=== PATIENT | female | born 1990 | race Hispanic/Latino ===

== ENCOUNTER 2016-07-19 22:56 | Emergency (ER) | payer OTHER ==
[~2016-07-19] VITALS: Ht 172.7 cm; Wt 101.6 kg
[~2016-07-19 22:56] MED LIST: IBUPROFEN800 MG PO; PRENATAL1 TA2 PO; TRANDATE-NORMO100 MG PO
--- NOTE | 2016-07-19 23:22 | ED THROAT/DENTAL COMPLAINT ---
History of Present Illness General Chief Complaint: Sore Throat, Dental Pain Stated Complaint: SORE THROAT Source: patient, BOYFRIEND Exam Limitations: no limitations Vital Signs & Intake/Output Vital Signs & Intake/Output Vital Signs Date Time Temp Pulse Resp B/P B/P Pulse O2 O2 Flow FiO2 Mean Ox Delivery Rate 07/20 0004 98.7 91 18 112/72 98 Room Air 07/19 2302 98.7 92 18 112/71 98 Room Air ED Intake and Output 07/20 0000 07/19 1200 Intake Total Output Total Balance Patient 224 lb Weight Weight Reported by Patient Measurement Method Allergies Coded Allergies: NO KNOWN ALLERGIES (01/06/14) Reconcile Medications Ibuprofen 800 MG TABLET 800 MG PO Q6P PRN PAIN SCALE 4-6 Labetalol (Trandate-Normodyne 100MG Tab) 100 MG TABLET 100 MG PO BID HYPERTENSION PNV95/FERROUS FUMARATE/FA ( Formula Tablet) 28 MG IRON-800 MCG TABLET 2 TAB PO DAILY supplement (Reported) Triage Note: PT 7MONTHS , TO TRIAGE FROM [facility], PT CLEARED BY OBGYN TO STAY IN ER, FHR 140'S. PT C/O SORE THROAT SINCE THIS MORNING. STREP SWAB OBTAINED IN TRIAGE AND SENT TO LAB. VSS. Triage Nurses Notes Reviewed? yes : Yes Patient currently breastfeeds: No HPI: Roxanne is a 25 year old female presents complaining of sore throat, chills, congestion onset today. Symptoms are currently moderate to severe. Patient's boyfriend started with similar symptoms 4 days ago. Patient is approximately 7 months , felt the baby moving less today. Was evaluated by the child center prior to coming to the ED. Patient is tolerating oral intake. Mild cough. Denies dyspnea, chest pain, vaginal bleeding, abdominal pain. (ALYX HAGER) Past History Travel History Traveled to [place] past 21 day No Medical History Any Pertinent Medical History? see below for history TRACK RIDER/Reproductive: currently 7 months Tetanus Vaccine: 03/27/10 Surgical History Surgical History: non-contributory Psychosocial History What is your primary language Bulgarian Tobacco Use: Never used Family History Hx Contributory? No (ALYX HAGER) Review of Systems Review of Systems Constitutional: Reports: chills. Denies: fever. EENTM: Reports: see HPI. Respiratory: Reports: cough. Denies: short of breath. Cardiovascular: Denies: chest pain. GI: Denies: abdominal pain, vomiting. Musculoskeletal: Reports: no symptoms. Skin: Reports: no symptoms. Neurological/Psychological: Reports: headache. Hematologic/Endocrine: Denies: bruising, bleeding. Immunologic/Allergic: Denies: splenectomy. (ALYX HAGER) Physical Exam Physical Exam General Appearance: well developed/nourished, alert, awake Head: atraumatic, normal appearance Eyes: Bilateral: normal appearance, PERRL, EOMI. Ears: Bilateral: canal normal, Tympanic normal. Nose: normal inspection Mouth/Throat: normal mouth inspection, pharynx normal Neck: normal inspection, supple, no anterior cervical lymphadenopathy Cardiovascular/Respiratory: normal breath sounds, regular rate/rhythm, no respiratory distress Back: normal inspection, normal range of motion Neurologic/Psych: no motor/sensory deficits, awake, alert, oriented x 3, normal gait, normal mood/affect Skin: intact, normal color, warm/dry Core Measures ACS in differential dx? No Severe Sepsis Present: No Septic Shock Present: No (ALYX HAGER) Progress Differential Diagnosis: epiglottitis, Ludwigs angina, strep pharyngitis, viral URI Plan of Care: Orders Procedure Date/time Status THROAT CULTURE W/QUICK STREP 07/19 2309 Active Patient was cleared by the childbirth center prior to arrival. Patient afebrile, nontoxic-appearing. Rapid strep test negative. Appears stable for discharge with symptomatic treatment. Has appointment with her wave solder offbearer on July 21. Discussed with Dr. Spears. (ALYX HAGER) Departure Departure Time of Disposition: 2355 Disposition: HOME OR SELF CARE Condition: Stable Clinical Impression Primary Impression: Viral upper respiratory infection Referrals: REE KARIMI,ANGELITA De Los Santos (PCP/Family) Additional Instructions: Take Tylenol as directed for pain. Saline nasal spray as directed for congestion. Follow up with Dr. Mahmood on as scheduled. Return to the ER if difficulty breathing, swallowing is becoming more difficult or worsening of symptoms. Departure Forms: Customer Survey General Discharge Information (ALYX HAGER) PA/MANUFACTURING OPERATIONS MANAGER Co-Sign Statement Statement: ED Attending supervision documentation- [] I saw and evaluated the patient. I have also reviewed all the pertinent lab results and diagnostic results. I agree with the findings and the plan of care as documented in the PA's/MANUFACTURING OPERATIONS MANAGER's documentation. [X] I have reviewed the ED Record and agree with the PA's/MANUFACTURING OPERATIONS MANAGER's documentation. [] Additions or exceptions (if any) to the PAs/MANUFACTURING OPERATIONS MANAGER's note and plan are summarized below: [] (MARIANO KARIMI,JACKELYN Suh)
[2016-07-20 00:04] VITALS: BP 112/72
== END 2016-07-20 00:05 ==
LOC: ERH 22:56
DX: J06.9 Acute upper respiratory infection, unspecified (principal); O47.02 False labor before 37 completed weeks of gestation, second trimester; Z3A.28 28 weeks gestation of pregnancy
CPT/HCPCS: 59025

== ENCOUNTER 2016-09-12 20:22 | Observation (INO) | payer OTHER ==
[2016-09-12 21:04] LABS: ABSOLUTE BASOPHIL COUNT 0 /CUMM (0.0-0.2); ABSOLUTE EOSINOPHIL COUNT 0 /CUMM (0.0-0.7); ABSOLUTE GRANULOCYTE CT 5.5 /CUMM (1.4-6.5); ABSOLUTE LYMPH COUNT 1.7 /CUMM (1.2-3.4); ABSOLUTE MONOCYTE COUNT 0.5 /CUMM (0.10-0.60); BASOPHIL % 0.3 % (0.0-2.0); EOSINOPHIL % 0.3 % (0-5); GRANULOCYTE % 71.3 % (42.2-75.2); HEMATOCRIT 29.9 % (37-47); MEAN CORPUSCULAR VOLUME 75.9 FL (81.0-99.0); MEAN PLATELET VOLUME 9.3 FL (7.4-10.4); PLATELET COUNT 281 /CUMM (130-400); RBC DISTRIBUTION WIDTH 15.4 % (11.5-14.5); RED BLOOD CELL CT 3.95 /CUMM (4.20-5.40); WHITE BLOOD CELL COUNT 7.7 /CUMM (4.8-10.8)
== END 2016-09-13 08:20 ==
LOC: CBCO 20:22 → GNO 22:50
PROVIDERS: ADMIT Obstetrics & Gynecology
DX: O13.3 Gestational [pregnancy-induced] hypertension without significant proteinuria, third trimester (principal); Z3A.36 36 weeks gestation of pregnancy; R51 Headache
CPT/HCPCS: 81001; 82570; G0378; G0463

== ENCOUNTER 2016-09-23 02:52 | Inpatient (IN) | payer OTHER ==
[~2016-09-23] VITALS: Ht 172.7 cm; Wt 109.3 kg
[2016-09-23 04:32] LABS: ABSOLUTE BASOPHIL COUNT 0 /CUMM (0.0-0.2); ABSOLUTE EOSINOPHIL COUNT 0.1 /CUMM (0.0-0.7); ABSOLUTE GRANULOCYTE CT 6.5 /CUMM (1.4-6.5); ABSOLUTE LYMPH COUNT 1.9 /CUMM (1.2-3.4); ABSOLUTE MONOCYTE COUNT 0.4 /CUMM (0.10-0.60); BASOPHIL % 0.2 % (0.0-2.0); EOSINOPHIL % 0.6 % (0-5); GRANULOCYTE % 72.9 % (42.2-75.2); HEMATOCRIT 30.6 % (37-47); MEAN CORPUSCULAR HGB 24.8 PG (27.0-31.0); MEAN CORPUSCULAR HGB CONC 32.5 G/DL (33.0-37.0); MEAN CORPUSCULAR VOLUME 76.2 FL (81.0-99.0); MEAN PLATELET VOLUME 9.3 FL (7.4-10.4); PLATELET COUNT 257 /CUMM (130-400); RBC DISTRIBUTION WIDTH 15.9 % (11.5-14.5); RED BLOOD CELL CT 4.02 /CUMM (4.20-5.40)
--- NOTE | 2016-09-23 09:29 | Labor & Delivery Summary ---
Delivery Summary Vaginal Delivery: Vaginal: vertex Episiotomy/Lacerations: Episiotomy/Lacerations: none Placenta: Placenta: spontanteous, normal, 3 vessel Anesthesia: block Additional Comments: of viable female infant 3 vessel cord over intact perineum suctioned with bulb on perineal cord doubly clamped and cut after lack of pulsation handed to mother for skin to skin cord cut placenta by continuous cord traction intact over intact perineum snare blood loss 500
--- NOTE | 2016-09-24 07:22 | PN- Post Delivery/GYN ---
Subjective Subjective: NO COMPLAINTS Objective Last 24 Hrs of Vital Signs/I&O PER CHART Assessment/Plan Assessment/Plan ASSESS S/P PLAN C D/C IN AM
[2016-09-24 09:23] LABS: ABSOLUTE BASOPHIL COUNT 0 /CUMM (0.0-0.2); ABSOLUTE EOSINOPHIL COUNT 0 /CUMM (0.0-0.7); ABSOLUTE GRANULOCYTE CT 8.6 /CUMM (1.4-6.5); ABSOLUTE LYMPH COUNT 2.2 /CUMM (1.2-3.4); ABSOLUTE MONOCYTE COUNT 0.5 /CUMM (0.10-0.60); BASOPHIL % 0.3 % (0.0-2.0); EOSINOPHIL % 0.4 % (0-5); GRANULOCYTE % 75.5 % (42.2-75.2); HEMATOCRIT 29.3 % (37-47); MEAN CORPUSCULAR HGB 25.4 PG (27.0-31.0); MEAN CORPUSCULAR HGB CONC 33.1 G/DL (33.0-37.0); MEAN CORPUSCULAR VOLUME 76.7 FL (81.0-99.0); PLATELET COUNT 280 /CUMM (130-400); RBC DISTRIBUTION WIDTH 16.1 % (11.5-14.5); RED BLOOD CELL CT 3.82 /CUMM (4.20-5.40); WHITE BLOOD CELL COUNT 11.4 /CUMM (4.8-10.8)
[2016-09-25] MEDS ORDERED: IBUPROFEN800 M1 PO (10:20)
--- NOTE | 2016-09-25 10:41 | PN- Post Delivery/GYN ---
Subjective Subjective: NO C/O Review of Systems: NEG Objective Last 24 Hrs of Vital Signs/I&O VSS Physical Exam: FF EXT NT Assessment/Plan Assessment/Plan S/P PPD2 STABLE DISCHARGE Problem List: 1.
== END 2016-09-25 12:45 | DRG 775 ==
LOC: CBCO 02:52 → GNO 03:31
PROVIDERS: Specialist; ADMIT Obstetrics & Gynecology
PROC: 10E0XZZ Delivery of Products of Conception, External Approach (ICD-10-PCS; principal; 2016-09-23)
DX: O24.429 Gestational diabetes mellitus in childbirth, unspecified control (principal); Z37.0 Single live birth; Z3A.38 38 weeks gestation of pregnancy; O13.4 Gestational [pregnancy-induced] hypertension without significant proteinuria, complicating childbirth
CPT/HCPCS: GNOS; 81001; 82570; 84112; J1650; J7120

== ENCOUNTER 2017-08-10 21:39 | Emergency (ER) | payer OTHER ==
[~2017-08-10 21:39] MED LIST changes: +IBUPROFEN800 M1 PO
--- NOTE | 2017-08-10 22:01 | ED NECK/BACK PAIN COMPLAINT ---
History of Present Illness General Chief Complaint: Low Back Pain/Injury Stated Complaint: LOWER BACK PAIN RADIATING TO LEG Source: patient Exam Limitations: no limitations Vital Signs & Intake/Output Vital Signs & Intake/Output Vital Signs Date Time Temp Pulse Resp B/P B/P Pulse O2 O2 Flow FiO2 Mean Ox Delivery Rate 08/10 2201 98.2 80 16 134/84 98 Room Air Room Air Allergies Coded Allergies: No Known Allergies (08/10/17) Reconcile Medications Cyclobenzaprine HCl 10 MG TABLET 1 TAB PO TID SPASMS Ibuprofen 800 MG TABLET 1 TAB PO TID pain Ibuprofen 800 MG TABLET 1 TAB PO TID pain Ibuprofen 800 MG TABLET 800 MG PO Q6P PRN PAIN SCALE 4-6 Ibuprofen 800 MG TABLET 800 MG PO Q6P PRN UTERINE CRAMPING PNV95/FERROUS FUMARATE/FA ( Formula Tablet) 28 MG IRON-800 MCG TABLET 2 TAB PO DAILY supplement (Reported) Triage Nurses Notes Reviewed? yes Onset: Abrupt Duration: hour(s): Timing: recent history Location: lumbar spine Loss of Consciousness: no loss of consciousness HPI: 26-year-old female comes into the emergency room and complains of low back pain. Patient reports that she was lifting her 2 daughters this afternoon around 2 PM. She's had pain across her low back shooting down her legs. Denies any tingling or numbness. Pain is worse with any type range of motion. No urinary bowel dysfunction. Comes in for further evaluation. Past History Travel History Traveled to [place] past 21 day No Medical History Any Pertinent Medical History? see below for history Neurological: NONE EENT: NONE Cardiovascular: hypertension Respiratory: NONE Gastrointestinal: NONE Hepatic: NONE Renal: NONE Musculoskeletal: NONE Psychiatric: NONE Endocrine: NONE Blood Disorders: NONE Cancer(s): NONE COIL TESTER/Reproductive: NVD 09/23/16 Tetanus Vaccine: 03/27/10 Surgical History Surgical History: non-contributory Psychosocial History What is your primary language Emirati Family History Hx Contributory? No Review of Systems Review of Systems Constitutional: Reports: no symptoms. Eyes: Reports: no symptoms. Ears, Nose, Throat, Mouth: Reports: no symptoms. Respiratory: Reports: no symptoms. Cardiovascular: Reports: no symptoms. Gastrointestinal/Abdominal: Reports: no symptoms. Musculoskeletal: Reports: see HPI. Skin: Reports: no symptoms. Neurological/Psychological: Reports: no symptoms. All Other Systems: Reviewed and Negative Physical Exam Physical Exam General Appearance: well developed/nourished, alert, awake, mild distress Head: atraumatic Eyes: Bilateral: normal appearance. Ears, Nose, Throat, Mouth: hearing grossly normal, moist mucous membrane Neck: normal inspection, full range of motion Respiratory: normal breath sounds, no respiratory distress Back: normal inspection, no vertebral tenderness, Tenderness along paraspinal muscles bilaterally, right greater than left Extremities: normal range of motion Motor: Deficit L4 Right: No Deficit L4 Left: No Deficit L5 Right: No Deficit L5 Left: No Deficit S1 Right: No Deficit S1 Right: No Neurologic/Psych: awake, alert, oriented x 3, normal mood/affect Skin: intact, normal color, warm/dry Core Measures CVA/TIA Diagnosis: No Progress Differential Diagnosis: cauda equina syn, herniated disc, myofascial strain, sciatica Plan of Care: Current Medications Sig/Karley Start time Last Medication Dose Stop Time Status Admin Ketorolac 60 MG ONCE ONE 08/10 2214 UNVr Tromethamine 08/11 2215 (Toradol) Lidocaine 20 ML ONCE ONE 08/10 2214 UNVr (Lidocaine 1%) 08/11 2215 Comments: 08/10/2017 10:32:41 PM No motor weakness on exam. Follow-up with PCP. Pain is consistent with muscular pain. Reproducible. Worse with range of motion. No midline back pain. Follow-up with PCP. Return if any other concerns. No heavy lifting. No motor deficits. Departure Departure Disposition: HOME OR SELF CARE Condition: Stable Clinical Impression Primary Impression: Strain of muscle, fascia and tendon of lower back, initial encounter Referrals: Chantale KARIMI,Nithya De Los Santos (PCP/Family) Additional Instructions: Take ibuprofen, and Flexeril as prescribed. No heavy lifting. Follow up with PCP. Return if any other concerns worsening symptoms. Moist heat to lower back. Please go over all results of today's visit with your primary care doctor. Contact your primary care doctor to let them know you were here in the emergency room. There may be nonspecific findings which may not be related to your visit today here in the emergency room but may require further evaluation and chronic monitoring by your primary care doctor. If you had a laceration today the chance of foreign body always remains. You should follow-up with your primary care doctor for recheck in 3-5 days for a wound check. If you had an x-ray done there is a chance that a fracture could have been missed on initial read and you should follow-up with your primary care doctor for repeat x-rays if symptoms persist. If your blood pressure was elevated here in the emergency room please have rechecked by paul primary care doctor within the next 48. If you were prescribed a narcotic here in the emergency room or any type of controlled substances you're not allowed to drive while taking this medication or operate any type of heavy machinery. Narcotics can make you feel lightheaded dizziness nausea and can cause constipation. You may need to pickle maker a stool softener. Thank you for choosing [facility] emergency room. Please return to the emergency room immediately if you have any other concerns worsening of symptoms. Departure Forms: Customer Survey General Discharge Information Prescriptions: Current Visit Scripts Ibuprofen 1 TAB PO TID #30 TAB Cyclobenzaprine HCl 1 TAB PO TID #30 TAB
[2017-08-10 22:02] VITALS: BP 134/84
[2017-08-10] MEDS ORDERED: IBUPROFEN800 M1 PO (22:10)
[2017-08-10] MEDS ORDERED: CYCLOBENZAPRINE10 M1 PO (22:10)
== END 2017-08-10 22:23 ==
LOC: ERH 21:39
DX: S39.012A Strain of muscle, fascia and tendon of lower back, initial encounter (principal); X58.XXXA Exposure to other specified factors, initial encounter; Y92.9 Unspecified place or not applicable; Y93.9 Activity, unspecified
CPT/HCPCS: 96372; J1885; J2001